=== PATIENT | female | born 1990 | race Asian ===

== ENCOUNTER 2019-05-02 17:58 | Emergency (ER) | payer SELFPAY ==
[~2019-05-02] VITALS: Ht 154.9 cm; Wt 87.0 kg
[2019-05-02 20:23] VITALS: BP 172/99
== END 2019-05-02 20:20 | disposition home or self-care (01) ==
LOC: ER 17:58
DX: Z76.0 Encounter for issue of repeat prescription (principal); F32.9 Major depressive disorder, single episode, unspecified
CPT/HCPCS: 99283